=== PATIENT | female | born 1970 | race Caucasian/White ===

== ENCOUNTER 2020-05-10 21:53 | Emergency (ER) | payer BC, OTHER ==
[2020-05-10] MEDS ORDERED: Sulfamethoxazole/Trimethoprim 800-160 MG Tab PO STA (22:22)
[2020-05-10] MEDS ORDERED: Ibuprofen 600 MG Tab PO ONE (22:22)
[2020-05-10] MEDS ORDERED: Acetaminophen/oxyCODONE 325-5 MG Tab PO ONE (22:22)
--- NOTE | 2020-05-10 22:41 | EDM.PDOC ---
ED HPI GENERAL MEDICAL PROBLEM - General Chief Complaint: Skin Complaint Stated Complaint: BOIL UNDER RIGHT ARM Time Seen by Provider: 05/10/20 22:12 - History of Present Illness INITIAL COMMENTS - FREE TEXT/NARRATIVE: HISTORY AND PHYSICAL: History of present illness: This is a 49-year-old female with a history significant for insulin resistance who presents ER today secondary to purulent drainage from right axilla. Patient reports that she has had history of multiple boils to her right axilla that usually drain on their own. Patient reports that she is had pain and discomfort in that area for several days and today started having malodorous drainage noted. Patient has any fevers, shakes, chills, nausea, vomiting, diarrhea, dysuria, frequency, urgency, chest pain, shortness of breath. Review of systems: As per history of present illness and below otherwise all systems reviewed and negative. Past medical history: As per history of present illness and as reviewed below otherwise noncontributory. Surgical history: As per history of present illness and as reviewed below otherwise noncontributory. Social history: No reported history of drug or alcohol abuse. Family history: As per history of present illness and as reviewed below otherwise noncontributory. Physical exam: Constitutional: Patient is oriented to person, place, and time. Appears well- developed and well-nourished. No distress. HEENT: Moist mucous membranes Head: Normocephalic and atraumatic Eyes: Right eye exhibits no discharge. Left eye exhibits no discharge. No scleral icterus Neck: Normal range of motion. No tracheal deviation present. Cardiovascular: Normal rate and regular rhythm. Pulmonary: Effort normal, no respiratory distress. Abdominal: No distention Musculoskeletal: Normal range of motion Neurologic: Alert and oriented to person, place and time. Skin: [place], warm and dry. Psychiatric: Normal mood and affect. Behavior is normal. Judgment and thought content normal. Nursing note and vital signs have been reviewed Patient's ER physical exam is significant for multiple boils to her right axilla with fluctuance and spontaneous malodorous purulent drainage. Assessment and plan: This is a 49-year-old female who appears to have a right axillary abscess that has started to drain on its own. No lymphangitic streaking. Patient is afebrile. Patient is nontoxic-appearing. Utilizing direct pressure, significant amount of malodorous purulent drainage was expressed. Abscess was drained until no further purulent material was expressed. A small amount of blood was obtained. Patient appears to have a history significant for hidradenitis suprativa the with multiple abscesses. Patient has been given Bactrim, Motrin, Percocet here in ED to assist with her pain and infection. Patient be given a prescription for Bactrim, Motrin and Percocet to assist her at home. Patient was instructed to utilize warm soaks to the area and to follow-up with her doctor in 2 to 3 days for wound check. Reassessment at the time of disposition demonstrates that the patient is in no acute distress. The patient has remained stable throughout the entire ED visit and is without objective evidence for acute process requiring urgent intervention or hospitalization. The patient is stable for discharge, counseling is provided as documented above, discussed symptomatic treatment and specific conditions for return. I have spoken with the patient and discussed todays findings, in addition to providing specific details for the plan of care. Questions are answered and there is agreement with the plan. [] Definitive disposition and diagnosis as appropriate pending reevaluation and review of above. right under arm Pain Score (Numeric/FACES): 5 - Related Data Allergies Allergy/AdvReac Type Severity Reaction Status Date / Time meperidine HCl [From Demerol] Allergy Cannot Verified 05/08/14 15:37 Remember Home Meds: Home Meds Acetaminophen/oxyCODONE [Percocet 325-5 MG] 1 each PO Q6HR PRN #10 tab 05/10/20 [Rx] Ibuprofen 600 mg PO Q6HR PRN #30 tablet 05/10/20 [Rx] Sulfamethoxazole/Trimethoprim [Bactrim Ds Tablet] 2 each PO BID #40 tablet 05/10/20 [Rx] Past Medical History HEENT History: Reports: None Cardiovascular History: Reports: None Respiratory History: Reports: None Gastrointestinal History: Reports: None Genitourinary History: Reports: None 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: Musculoskeletal History: Reports: None Neurological History: Reports: None Psychiatric History: Reports: Anxiety, Depression Endocrine/Metabolic History: Reports: Other (See Below) Other Endocrine/Metabolic History: Insulin Resistant Insulin Pump Model and Heart Specialist: None Hematologic History: Reports: None Immunologic History: Reports: None Oncologic (Cancer) History: Reports: None - Infectious Disease History Infectious Disease History: Reports: None - Past Surgical History Head Surgeries/Procedures: Reports: None HEENT Surgical History: Reports: Tonsillectomy GI Surgical History: Reports: Cholecystectomy Dermatological Surgical History: Reports: Skin Graft Social & Family History - Family History Family Medical History: Noncontributory - Tobacco Use Smoking Status *Q: Never Smoker - Caffeine Use Caffeine Use: Reports: Soda - Recreational Drug Use Recreational Drug Use: No ED ROS GENERAL - Review of Systems Review Of Systems: See Below ED EXAM, SKIN/RASH Exam: See Below Course - Vital Signs Last Recorded V/S: Last Vital Signs Temp 99.4 F 05/10/20 22:20 Pulse 100 05/10/20 22:20 Resp 18 05/10/20 22:20 BP 148/84 H 05/10/20 22:20 Pulse Ox 97 05/10/20 22:20 - Orders/Labs/Meds Meds: Medications Discontinued Medications Generic Name Dose Route Start Last Admin Trade Name Sharif PRN Reason Stop Dose Admin Ibuprofen 600 mg 05/10/20 22:22 05/10/20 22:30 Motrin PO 05/10/20 22:23 600 mg ONETIME ONE Administration Oxycodone/Acetaminophen 1 tab 05/10/20 22:22 05/10/20 22:31 Percocet 325-5 Mg PO 05/10/20 22:23 1 tab ONETIME ONE Administration Trimethoprim/Sulfamethoxazole 2 tab 05/10/20 22:22 05/10/20 22:30 Septra Ds PO 05/10/20 22:23 2 tab ONETIME STA Administration Departure - Departure Time of Disposition: 22:40 Disposition: Home, Self-Care 01 Condition: Good Clinical Impression: Abscess - Discharge Information Instructions: Skin Abscess Referrals: Steven Oneil MD [Primary Care Provider] - Additional Instructions: You have been given a prescription for Bactrim 2 pills twice a day for 10 days as an antibiotic to treat the abscess under your right armpit. You will also be given a prescription for Percocet as well as ibuprofen to assist you with pain management for the next 2 days. Please make an appointment to see your family doctor in 2 to 3 days for reevaluation and make sure that the infection is improving. Please apply a heating pad or warm soaks to the right axillary area to increase blood flow which will increase your body's mechanism to fight the infection. The following information is given to patients seen in the emergency department who are being discharged to home. This information is to outline your options for follow-up care. We provide all patients seen in our emergency department with a follow-up referral. The need for follow-up, as well as the timing and circumstances, are variable depending upon the specifics of your emergency department visit. If you don't have a primary care physician on staff, we will provide you with a referral. We always advise you to contact your personal physician following an emergency department visit to inform them of the circumstance of the visit and for follow-up with them and/or the need for any referrals to a consulting specialist. The emergency department will also refer you to a specialist when appropriate. This referral assures that you have the opportunity for follow-up care with a specialist. All of these measure are taken in an effort to provide you with optimal care, which includes your follow-up. Under all circumstances we always encourage you to contact your private physician who remains a resource for coordinating your care. When calling for follow-up care, please make the office aware that this follow-up is from your recent emergency room visit. If for any reason you are refused follow-up, please contact the Emergency Department at and asked to speak to the emergency department charge nurse. Sepsis Event Note (ED) - Evaluation Sepsis Screening Result: No Definite Risk - Focused Exam Vital Signs: Vital Signs Temp Pulse Resp BP Pulse Ox 05/10/20 22:20 99.4 F 100 18 148/84 H 97
== END 2020-05-10 23:00 | disposition home or self-care (01) ==
LOC: MW.ED 21:53
DX: L02.411 Cutaneous abscess of right axilla (principal); Z88.5 Allergy status to narcotic agent
CPT/HCPCS: 99283; A9270

== ENCOUNTER 2020-07-06 14:41 | Emergency (ER) | payer OTHER ==
--- NOTE | 2020-07-06 14:52 | EDM.PDOC ---
ED HPI GENERAL MEDICAL PROBLEM - General Chief Complaint: Lower Extremity Injury/Pain Stated Complaint: FALL Time Seen by Provider: 07/06/20 14:42 Source of Information: Reports: Patient History Limitations: Reports: No Limitations - History of Present Illness INITIAL COMMENTS - FREE TEXT/NARRATIVE: 49-year-old female no relevant past medical history presents after a fall. She notes that she stepped on her left ankle wrong causing an inversion injury and fell flat on her belly. She notes pain in the left ankle worse with bearing weight and ambulation. She denies pain at rest. Denies hitting her head or LOC. She has ambulated after the fall. 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: Musculoskeletal History: Reports: None Neurological History: Reports: None Psychiatric History: Reports: Anxiety, Depression Endocrine/Metabolic History: Reports: Other (See Below) Other Endocrine/Metabolic History: Insulin Resistant Insulin Pump Model and Hot Die Press Operator: None Hematologic History: Reports: None Immunologic History: Reports: None Oncologic (Cancer) History: Reports: None - Infectious Disease History Infectious Disease History: Reports: None - Past Surgical History Head Surgeries/Procedures: Reports: None HEENT Surgical History: Reports: Tonsillectomy GI Surgical History: Reports: Cholecystectomy Dermatological Surgical History: Reports: Skin Graft Social & Family History - Family History Family Medical History: Noncontributory - Caffeine Use Caffeine Use: Reports: Soda Review of Systems - Review of Systems Review Of Systems: Comprehensive ROS is negative, except as noted in HPI. ED EXAM, GENERAL - Physical Exam Exam: See Below Exam Limited By: No Limitations General Appearance: Alert, WD/WN, No Apparent Distress Throat/Mouth: Normal Voice, No Airway Compromise Head: Atraumatic, Normocephalic Respiratory/Chest: No Respiratory Distress, No Accessory Muscle Use Extremities: Other (mild swelling of L ankle, no TTP of L medial or lateral malleolus, no foot/metatarsal TTP, no tibial TTP) Neurological: Alert Psychiatric: Normal Affect, Normal Mood Skin Exam: Warm, Dry, Intact, Normal Color Course - Vital Signs Last Recorded V/S: Last Vital Signs Temp 98 F 07/06/20 14:50 Pulse 64 07/06/20 15:31 Resp 18 07/06/20 15:31 BP 133/65 07/06/20 15:31 Pulse Ox 99 07/06/20 15:31 - Re-Assessments/Exams Free Text/Narrative Re-Assessment/Exam: 07/06/20 14:51 Will get XR imaging of L ankle to r/o less likely fracture/dislocation, patient declines analgesia. 07/06/20 15:42 No evidence of fracture or dislocation on x-ray imaging. We will Magdy wrap the ankle, and recommend PMD follow-up return precautions discussed. Departure - Departure Time of Disposition: 15:42 Disposition: Home, Self-Care 01 Condition: Good Clinical Impression: Ankle sprain Qualifiers: Encounter type: initial encounter Involved ligament of ankle: unspecified ligament Laterality: left Qualified Code(s): S93.402A - Sprain of unspecified ligament of left ankle, initial encounter - Discharge Information Instructions: Ankle Sprain, [id number] Referrals: Tiffanie Oneil MD [Primary Care Provider] - Forms: ED Department Discharge Additional Instructions: The following information is given to patients seen in the emergency department who are being discharged to home. This information is to outline your options for follow-up care. We provide all patients seen in our emergency department with a follow-up referral. The need for follow-up, as well as the timing and circumstances, are variable depending upon the specifics of your emergency department visit. If you don't have a primary care physician on staff, we will provide you with a referral. We always advise you to contact your personal physician following an emergency department visit to inform them of the circumstance of the visit and for follow-up with them and/or the need for any referrals to a consulting specialist. The emergency department will also refer you to a specialist when appropriate. This referral assures that you have the opportunity for follow-up care with a specialist. All of these measure are taken in an effort to provide you with optimal care, which includes your follow-up. Under all circumstances we always encourage you to contact your private urmila zambranoian who remains a resource for coordinating your care. When calling for follow-up care, please make the office aware that this follow-up is from your recent emergency room visit. If for any reason you are refused follow-up, please contact the [facility] Emergency Department at and asked to speak to the emergency department charge nurse. Please follow up with your primary care physician. If you do not have a primary care physician, see below: [facility] [address] [place] [id number] [facility] [address] [place] [id number] Sepsis Event Note (ED) - Focused Exam Vital Signs: Vital Signs Temp Pulse Resp BP Pulse Ox 07/06/20 15:31 64 18 133/65 99 07/06/20 14:50 98 F 79 18 126/69 97
--- NOTE | 2020-07-06 15:40 | CR ---
Indication: Left ankle pain Technique: Left ankle 3 views Comparison: None Findings: The ankle mortise is symmetrical. The talar dome is smooth and intact. Well corticated opacity adjacent to the medial malleolus is appreciated which may represent sequela of prior injury. There is mild para malleolar soft tissue swelling. Impression: Mild para malleolar soft tissue swelling with out evidence of definite acute osseous abnormality. Corticated opacity adjacent to the medial malleolus likely represents sequela of old injury. Dictated by Mauro Bradley MD @ Jul 06 2020 3:37PM Signed by Dr. Mauro Bradley @ Jul 06 2020 3:38PM
== END 2020-07-06 16:00 | disposition home or self-care (01) ==
LOC: MW.ED 14:41
DX: S93.402A Sprain of unspecified ligament of left ankle, initial encounter (principal); Z88.5 Allergy status to narcotic agent; X50.9XXA Other and unspecified overexertion or strenuous movements or postures, initial encounter
CPT/HCPCS: 73610-26-LT; 73610-LT; 99282; 99283

== ENCOUNTER 2021-03-05 11:09 | Emergency (ER) | payer OTHER ==
--- NOTE | 2021-03-05 12:56 | EDM.PDOC ---
ED HPI GENERAL MEDICAL PROBLEM - General Chief Complaint: ENT Problem Stated Complaint: NOSE LESION Time Seen by Provider: 03/05/21 12:34 Source of Information: Reports: Patient History Limitations: Reports: No Limitations - History of Present Illness INITIAL COMMENTS - FREE TEXT/NARRATIVE: HISTORY AND PHYSICAL: History of present illness: The patient is a 50-year-old female who presents to the emergency room with complaints of a wound on her nose which started Sunday. 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 She states that each day the area has gotten better and now has a black center. The patient has not used any kind of oils or treatment on her nose. The patient states that she does have some glands that she noticed swollen in her posterior neck and right axillary area. The patient is otherwise healthy. Patient denies any fever, chills, headache, change in vision, syncope or near syncope. Denies any chest pain, back pain, shortness of breath or cough. Denies any abdominal pain, nausea, vomiting, diarrhea, constipation or dysuria. Has not noted any blood in urine or stool. Patient has been eating and drinking appropriately. Review of systems: As per history of present illness and below otherwise all systems reviewed and negative. Past medical history: As per history of present illness and as reviewed below otherwise noncontributory. Surgical history: As per history of present illness and as reviewed below otherwise noncontribut ory. Social history: See social history for further information Family history: As per history of present illness and as reviewed below otherwise noncontributory. Physical exam: General: Well developed and well nourished. Alert and orientated x 3. Nontoxic in appearance and in no acute distress. Vital signs are stable and have been reviewed by me. Nursing notes were reviewed. HEENT: Atraumatic, normocephalic, pupils equal and reactive bilaterally, negative for conjunctival pallor or scleral icterus, mucous membranes moist, TMs normal bilaterally, throat clear, neck supple, posterior right tenderness with swollen node, trachea midline. No drooling or trismus noted. No meningeal signs. No hot potato voice noted. Lungs: Clear to auscultation bilaterally. No wheezes, rales, or rhonchi. Chest nontender. Normal work of breathing, no accessory muscles used. Heart: S1S2, regular rate and rhythm without overt murmur, gallops, or rubs. No JVD. No peripheral edema Abdomen: Soft, nondistended, nontender. Normoactive bowel sounds. Negative for masses or costovertebral tenderness. Skin: Brown crusty area with a black base. Nose is firm with erythema surrounding the wound. , warm, dry. No lesions or rashes noted. Hematologic: No petechiae or purpra. Mucosa appropriate color and normal nail bed color and refill. Extremities: Right axilla tender with swollen node. Atraumatic, moves all extremities per self without difficulty or deficits, negative for cords or calf pain. Neurovascular unremarkable. Neuro: Awake, alert, oriented. Cranial nerves II through XII unremarkable. Cerebellum unremarkable. Motor and sensory unremarkable throughout. Exam nonfocal. Psychiatric: Mood and affect are appropriate. Normal thought process. Answering questions appropriately. Notes: *This patient was seen and evaluated during the 2019 SARS-CoV-2 novel coronavirus pandemic period. Community viral transmission is ongoing at time of this encounter and the emergency department is operating under pandemic response procedures. As stated above the patient is a 50-year-old female who presents to the emergency room with a wound on the tip of her nose. She states this started on Sunday when she was teaching a class and felt a burning sensation on her nose. She then noticed some clear liquid draining from her nose. She did not notice any increased redness at that point. She states that the area became progressively redder kept draining more clear fluid. Yesterday it started to form a darker center and today she presents with a red firm nose with a round crusty area around a black center of the wound. She denies any temperature or generalized malaise. This appears to be impetigo and I will treat with Dicloxacillin 250mg QID x 7 days and mupirocin to area three times per day for 5 days. The patient is agreeable with this discharge plan. I have talked with the patient about today's findings, in addition to providing specific details for plan of care. Reassessment at the time of disposition demonstrates that the patient is in no acute distress. The patient is stable for discharge, counseling was provided and we discussed in great detail signs and symptoms that would prompt them to return to the Emergency Department. Medication, follow up and supportive care measures were reviewed and discussed. Voices understanding and is agreeable to plan of care. Denies any further questions or concerns at this time. Prescription: Dicloxacillin 250mg po QID x 7 days and mupirocin to area three times per day for 5 days. Impression: Impetigo Plan: 1. You were evaluated today on an emergent basis. Your complaint of wound on your nose was evaluated with an examination and found to be infected. I will start you on dicloxacillin 250 mg 4 times a day for 7 days days. Apply mupirocin to area 2-3 times a day for 5 days. Keep the area clean. Do not pick at the area. 2. You can alternate Tylenol and ibuprofen as needed for pain and fever management. 3. We encourage you to follow up with your primary care provider and/or recommended specialist in the next few days for re-evaluation and further care/management. 4. If your symptoms should worsen, new symptoms develop or any of the signs and symptoms we discussed should arise please return to the emergency room or call 911 (if needed). Definitive disposition and diagnosis as appropriate pending reevaluation and review of above. nose/neck Pain Score (Numeric/FACES): 4 - Related Data Allergies Allergy/AdvReac Type Severity Reaction Status Date / Time meperidine HCl [From Demerol] Allergy Cannot Verified 03/05/21 12:24 Remember Home Meds: Home Meds Ibuprofen 600 mg PO Q6HR PRN #30 tablet 05/10/20 [Rx] Acetaminophen [Tylenol] 325 mg PO BID 07/06/20 [History] Dicloxacillin 250 mg PO QID 7 Days #28 cap 03/05/21 [Rx] Mupirocin [Centany] 30 gm TP TID 5 Days #1 oint...g. 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: Musculoskeletal History: Reports: None Neurological History: Reports: None Psychiatric History: Reports: Anxiety, Depression Endocrine/Metabolic History: Reports: Other (See Below) Other Endocrine/Metabolic History: Insulin Resistant Insulin Pump Model and Top Waddy: None Hematologic History: Reports: None Immunologic History: Reports: None Oncologic (Cancer) History: Reports: None - Infectious Disease History Infectious Disease History: Reports: Chicken Pox, Measles, Mumps - Past Surgical History Head Surgeries/Procedures: Reports: None HEENT Surgical History: Reports: Adenoidectomy, Tonsillectomy GI Surgical History: Reports: Cholecystectomy Dermatological Surgical History: Reports: Skin Graft Social & Family History - Family History Family Medical History: No Pertinent Family History - Tobacco Use Tobacco Use Status *Q: Never Tobacco User - Caffeine Use Caffeine Use: Reports: Soda - Recreational Drug Use Recreational Drug Use: No ED ROS ENT - Review of Systems Review Of Systems: Comprehensive ROS is negative, except as noted in HPI. ED EXAM, ENT - Physical Exam Exam: See Below (See dictation) Course - Vital Signs Last Recorded V/S: Last Vital Signs Temp 98 F 03/05/21 12:24 Pulse 93 03/05/21 12:24 Resp BP 151/93 H 03/05/21 12:24 Pulse Ox 98 03/05/21 12:24 Departure - Departure Time of Disposition: 12:59 Disposition: Home, Self-Care 01 Condition: Good Clinical Impression: Impetigo - Discharge Information *PRESCRIPTION DRUG MONITORING PROGRAM REVIEWED*: Not Applicable *COPY OF PRESCRIPTION DRUG MONITORING REPORT IN PATIENT MANUEL: Not Applicable Prescriptions: Mupirocin [Centany] 30 gm TP TID 5 Days #1 oint...g. Dicloxacillin 250 mg PO QID 7 Days #28 cap Instructions: Impetigo, Adult Referrals: Steven Oneil MD [Primary Care Provider] - Forms: ED Department Discharge Additional Instructions: The following information is given to patients seen in the emergency department who are being discharged to home. This information is to outline your options for follow-up care. We provide all patients seen in our emergency department with a follow-up referral. The need for follow-up, as well as the timing and circumstances, are variable depending upon the specifics of your emergency department visit. If you don't have a primary care physician on staff, we will provide you with a referral. We always advise you to contact your personal physician following an emergency department visit to inform them of the circumstance of the visit and for follow-up with them and/or the need for any referrals to a consulting specialist. The emergency department will also refer you to a specialist when appropriate. This referral assures that you have the opportunity for follow-up care with a specialist. All of these measure are taken in an effort to provide you with optimal care, which includes your follow-up. Under all circumstances we always encourage you to contact your private physician who remains a resource for coordinating your care. When calling for follow-up care, please make the office aware that this follow-up is from your recent emergency room visit. If for any reason you are refused follow-up, please contact the [facility] Emergency Department at and asked to speak to the emergency department charge nurse. [facility] [address] [place] [id number] [address] Plan: 1. You were evaluated today on an emergent basis. Your complaint of wound on your nose was evaluated with an examination and found to be infected. I will start you on dicloxacillin 250 mg 4 times a day for 7 days days. Apply mupirocin to area 2-3 times a day for 5 days. Keep the area clean. Do not pick at the area. 2. You can alternate Tylenol and ibuprofen as needed for pain and fever management. 3. We encourage you to follow up with your primary care provider and/or recommended specialist in the next few days for re-evaluation and further care/management. 4. If your symptoms should worsen, new symptoms develop or any of the signs and symptoms we discussed should arise please return to the emergency room or call 911 (if needed). Sepsis Event Note (ED) - Evaluation Sepsis Screening Result: No Definite Risk - Focused Exam Vital Signs: Vital Signs Temp Pulse BP Pulse Ox 03/05/21 12:24 98 F 93 151/93 H 98
== END 2021-03-05 13:25 | disposition home or self-care (01) ==
LOC: MW.ED 11:09
DX: L01.00 Impetigo, unspecified (principal); Z88.5 Allergy status to narcotic agent
CPT/HCPCS: 99283

== ENCOUNTER 2021-07-08 17:15 | Emergency (ER) | payer OTHER ==
--- NOTE | 2021-07-08 17:42 | PCM.EKG ---
#1 Interpretation EKG Interpretation Comments: EKG done 07/08/2021 at 5:30 PM shows sinus rhythm heart rate 79 [place] [address] XII normal QRS normal ST and T impression essentially normal EKG
--- NOTE | 2021-07-08 18:02 | EDM.PDOC ---
ED HPI GENERAL MEDICAL PROBLEM - General Chief Complaint: Chest Pain Stated Complaint: MUSCLE TIGHTNESS,PASSED OUT Time Seen by Provider: 07/08/21 17:52 - History of Present Illness INITIAL COMMENTS - FREE TEXT/NARRATIVE: History of present illness: [] Review of systems: As per history of present illness and below otherwise all systems reviewed and negative. Past medical history: As per history of present illness and as reviewed below otherwise noncontributory. This patient who for years has had brief blackouts has never told her doctor. Recently she has had more frequency. Today she had pressure in her left chest left anterior chest and shoulder. It was associated with diaphoresis. Its associated with shortness of breath. She suddenly saw things start to go black and then she sat in a chair and blacked out. People said she shook but not rhythmically no seizure. There is no incontinence. She was out only few seconds. The patient came to and still had chest and shoulder discomfort. The chest and shoulder discomfort are better but she still short of breath. She has been diaphoretic off and on. Exertion does not make this worse. The patient smoked for 20 years but stopped 6 years ago. The patient is insulin resistant and tested frequently for diabetes. She is treated for blood pressure and cholesterol. Patient has family members in their 50s that have strokes and heart attacks. Surgical history: As per history of present illness and as reviewed below otherwise noncontributory. Social history: No reported history of drug or alcohol abuse. Family history: As per history of present illness and as reviewed below otherwise noncontributory. Physical exam: Constitutional -obese-BMI 56.5-well developed, well-nourished and in no acute distress HEENT - normocephalic, no evidence of trauma - external nose and mouth normal - no mass in neck and no JVD - mucosae moist EYES - full EOM, PERRL, no icterus - no evidence of inflammation, injection, or drainage Respiratory - no respiratory distress, equal bilateral expansion, lungs clear to auscultation and no abnormal lung sounds Cardiovascular - Regular Rhythm with S1 and S2 appreciated and no murmur, gallop or rub. GI - abdomen soft without distension or organomegaly - normal bowel sounds - no guard or rebound Musculoskeletal no gross deformity of long bones or joints - no tenderness, swelling or edema Neurologic - Alert and oriented times four - CN II-XII grossly intact - motor sensory and coordination symmetrically normal Psychiatric - appropriate mood and affect with normal thought content Hematologic - No petechiae or purpura - mucosa appropriate color and sclera not pale - normal nail bed color and refill Integument - no rash or evidence of trauma - normal turgor Diagnostics: [] Therapeutics: [] Impression: [] Plan: [] Definitive disposition and diagnosis as appropriate pending reevaluation and review of above. - Related Data Allergies Allergy/AdvReac Type Severity Reaction Status Date / Time meperidine HCl [From Demerol] Allergy Syncope Verified 07/08/21 17:37 Home Meds: Home Meds Ibuprofen 600 mg PO Q6HR PRN #30 tablet 05/10/20 [Rx] Acetaminophen [Tylenol] 325 mg PO BID 07/06/20 [History] Dicloxacillin 250 mg PO QID 7 Days #28 cap 03/05/21 [Rx] Mupirocin [Centany] 30 gm TP TID 5 Days #1 oint...g. 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: Musculoskeletal History: Reports: None Neurological History: Reports: None Psychiatric History: Reports: Anxiety, Depression Endocrine/Metabolic History: Reports: Other (See Below) Other Endocrine/Metabolic History: Insulin Resistant Insulin Pump Model and Rotary Drill Operator: None Hematologic History: Reports: None Immunologic History: Reports: None Oncologic (Cancer) History: Reports: None - Infectious Disease History Infectious Disease History: Reports: Chicken Pox, Measles, Mumps - Past Surgical History Head Surgeries/Procedures: Reports: None HEENT Surgical History: Reports: Adenoidectomy, Tonsillectomy GI Surgical History: Reports: Cholecystectomy Dermatological Surgical History: Reports: Skin Graft Social & Family History - Family History Family Medical History: No Pertinent Family History - Caffeine Use Caffeine Use: Reports: Soda ED ROS GENERAL - Review of Systems Review Of Systems: Comprehensive ROS is negative, except as noted in HPI. ED EXAM, GENERAL - Physical Exam Exam: See Below Free Text/Narrative:: My physical exam is in the HPI Course - Vital Signs Last Recorded V/S: Last Vital Signs Temp Pulse 84 07/08/21 17:30 Resp 17 07/08/21 17:30 BP 145/82 H 07/08/21 17:30 Pulse Ox 97 07/08/21 17:30 - Orders/Labs/Meds Labs: Laboratory Tests 07/08/21 07/08/21 Range/Units 17:34 17:34 WBC 7.82 (4.0-11.0) K/uL RBC 5.14 (4.30-5.90) M/uL Hgb 14.4 (12.0-16.0) g/dL Hct 41.8 (36.0-46.0) % MCV 81.3 (80.0-98.0) fL MCH 28.0 (27.0-32.0) pg MCHC 34.4 (31.0-37.0) g/dL RDW Std Deviation 43.6 (28.0-62.0) fl RDW Coeff of Madan 15 (11.0-15.0) % Plt Count 166 (150-400) K/uL MPV 9.20 (7.40-12.00) fL Neut % (Auto) 60.6 (48.0-80.0) % Lymph % (Auto) 31.3 (16.0-40.0) % [place] % (Auto) 5.2 (0.0-15.0) % Eos % (Auto) 2.6 (0.0-7.0) % Baso % (Auto) 0.3 (0.0-1.5) % Neut # (Auto) 4.7 (1.4-5.7) K/uL Lymph # (Auto) 2.5 H (0.6-2.4) K/uL [place] # (Auto) 0.4 (0.0-0.8) K/uL Eos # (Auto) 0.2 (0.0-0.7) K/uL Baso # (Auto) 0.0 (0.0-0.1) K/uL Nucleated RBC % 0.0 /100WBC Nucleated RBCs # 0 K/uL Sodium 142 (136-145) mmol/L Potassium 3.8 (3.5-5.1) mmol/L Chloride 103 (98-107) mmol/L Carbon Dioxide 24.6 (21.0-32.0) mmol/L BUN 14 (7.0-18.0) mg/dL Creatinine 0.9 (0.6-1.0) mg/dL Est Cr Clr Drug Dosing 78.15 mL/min Estimated GFR (MDRD) > 60.0 ml/min Glucose 139 H (74-106) mg/dL Calcium 9.0 (8.5-10.1) mg/dL Total Bilirubin 0.6 (0.2-1.0) mg/dL AST 35 (15-37) IU/L ALT 59 (14-63) IU/L Alkaline Phosphatase 60 (46-116) U/L Troponin I < 0.050 (0.000-0.056) ng/mL Total Protein 7.8 (6.4-8.2) g/dL Albumin 3.7 (3.4-5.0) g/dL Globulin 4.1 H (2.6-4.0) g/dL Albumin/Globulin Ratio 0.9 (0.9-1.6) Departure - Departure Time of Disposition: 18:47 Disposition: Home, Self-Care 01 Clinical Impression: Chest pain, Syncope, Dyspnea - Discharge Information Instructions: Shortness of Breath, Adult, [id number], Nonspecific Chest Pain, Adult, [id number], Syncope Forms: ED Department Discharge Additional Instructions: have Zio patch placed tomorrow or Sunday. Go back to normal activities but if you get worse or prolonged pain an episode last longer than a few seconds you need to return. Make appointment with cardiology clinic for reevaluation [facility] - cardiology [address] [place] [address] Follow-up with your doctor or primary care [facility] - Primary Care [address] [place] [id number] [id number] The following information is given to patients seen in the emergency department who are being discharged to home. This information is to outline your options for follow-up care. We provide all patients seen in our emergency department with a follow-up referral. The need for follow-up, as well as the timing and circumstances, are variable depending upon the specifics of your emergency department visit. If you don't have a primary care physician on staff, we will provide you with a referral. We always advise you to contact your personal physician following an emergency department visit to inform them of the circumstance of the visit and for follow-up with them and/or the need for any referrals to a consulting specialist. The emergency department will also refer you to a specialist when appropriate. This referral assures that you have the opportunity for follow-up care with a specialist. All of these measure are taken in an effort to provide you with optimal care, which includes your follow-up. Under all circumstances we always encourage you to contact your private physician who remains a resource for coordinating your care. When calling for follow-up care, please make the office aware that this follow-up is from your recent emergency room visit. If for any reason you are refused follow-up, please contact the [facility] Emergency Department at and asked to speak to the emergency department charge nurse. Sepsis Event Note (ED) - Evaluation Sepsis Screening Result: No Definite Risk - Focused Exam Vital Signs: Vital Signs Pulse Resp BP Pulse Ox 07/08/21 17:30 84 17 145/82 H 97
[2021-07-08 18:18] LABS: BLOOD UREA NITROGEN,BUN 14 mg/dL (7.0-18.0); CARBON DIOXIDE,CO2 24.6 mmol/L (21.0-32.0); CHLORIDE,CL 103 mmol/L (98-107); GLUCOSE RANDOM 139 mg/dL (74-106); POTASSIUM,K 3.8 mmol/L (3.5-5.1); SODIUM,NA 142 mmol/L (136-145)
--- NOTE | 2021-07-08 18:43 | CR ---
INDICATION: Chest pain TECHNIQUE: Chest 1 view. COMPARISON: 12/06/2020 FINDINGS: Cardiovascular and mediastinum: Heart size and vasculature are normal in caliber and appearance. Mediastinum is within normal limits. Lungs and pleural space: Lungs are clear. No pleural effusion. No pneumothorax. Bones and soft tissues: No acute findings. IMPRESSION: No acute abnormality identified. Dictated by Sixto Mayes MD @ 07/08/2021 6:42:13 PM Dictated by: Sixto Mayes MD @ 07/08/2021 18:42:19 (Electronically Signed)
== END 2021-07-08 18:58 | disposition home or self-care (01) ==
LOC: MW.ED 17:15
DX: R07.89 Other chest pain (principal); R55 Syncope and collapse; R06.00 Dyspnea, unspecified; Z88.5 Allergy status to narcotic agent; Z87.891 Personal history of nicotine dependence
CPT/HCPCS: 36415; 71045; 71045-26; 80053; 84484; 85025; 93005; 99285-25

== ENCOUNTER 2022-03-23 12:15 | Emergency (ER) | payer OTHER ==
[2022-03-23 13:54] LABS: CARBON DIOXIDE,CO2 25.6 mmol/L (21.0-32.0); POTASSIUM,K 3.7 mmol/L (3.5-5.1)
[2022-03-23] MEDS ORDERED: Iopamidol 755 MG/ML 500 ML Multipack Bottle IVPUSH STA (15:37)
== END 2022-03-23 19:15 | disposition home or self-care (01) ==
LOC: MW.ED 12:15
DX: K56.699 Other intestinal obstruction unspecified as to partial versus complete obstruction (principal); Z88.8 Allergy status to other drugs, medicaments and biological substances; Z86.16 Personal history of COVID-19; Z90.49 Acquired absence of other specified parts of digestive tract
CPT/HCPCS: 36415; 74177; 76856; 80053; 81003; 81025; 83690; 85025; 99285; Q9967; 99284

== ENCOUNTER 2022-07-03 09:01 | Day surgery (SDC) | payer OTHER ==
[~2022-07-03 09:01] MED LIST: Lactated Ringers 1,000 ML IV SCH; Rocuronium Bromide 50 MG/5 ML Syringe ONE
[2022-07-03] MEDS ORDERED: Lidocaine 2% 5 ML SDV ONE (09:11)
[2022-07-03] MEDS ORDERED: Dexamethasone 4 MG/ML 5 ML MDV ONE (09:11)
[2022-07-03] MEDS ORDERED: Propofol 200 MG/20 ML SDV ONE (09:11)
[2022-07-03] MEDS ORDERED: Sugammadex Sodium 200 MG/2 ML VIAL ONE (09:11)
[2022-07-03] MEDS ORDERED: Ondansetron 4 MG/2 ML SDV ONE (09:11)
[2022-07-03] MEDS ORDERED: Midazolam 1 MG/ML 2 ML SDV ONE (09:11)
[2022-07-03] MEDS ORDERED: fentaNYL 250 MCG/5 ML SDV ONE (09:12)
[2022-07-03] MEDS ORDERED: Albuterol 0.083% 2.5 MG/3 ML Neb Soln NEB PRN (09:33)
[2022-07-03] MEDS ORDERED: Ondansetron 4 MG/2 ML SDV IVPUSH PRN (09:33)
[2022-07-03] MEDS ORDERED: fentaNYL 50 MCG/ML SDV IVPUSH PRN (09:33)
[2022-07-03] MEDS ORDERED: Metoclopramide 10 MG/2 ML SDV IVPUSH PRN (09:33)
[2022-07-03] MEDS ORDERED: HYDROmorphone 1 MG/ML Syringe IVPUSH PRN (09:33)
[2022-07-03] MEDS ORDERED: Naloxone 0.4 MG/ML SDV IVPUSH PRN (09:33)
[2022-07-03] MEDS ORDERED: Morphine 2 MG/ML SYRINGE IVPUSH PRN (09:33)
[2022-07-03] MEDS ORDERED: Bupivacaine 0.25% 30 ML SDV ONE (11:45)
[2022-07-03] MEDS ORDERED: Ketorolac 30 MG/ML SDV ONE (13:04)
== END 2022-07-03 15:34 | disposition home or self-care (01) ==
LOC: MW.SDS 09:01
PROVIDERS: ATTEND Obstetrics & Gynecology
DX: N84.0 Polyp of corpus uteri (principal); N83.8 Other noninflammatory disorders of ovary, fallopian tube and broad ligament; E66.9 Obesity, unspecified; F32.A Depression, unspecified; K21.9 Gastro-esophageal reflux disease without esophagitis; E28.2 Polycystic ovarian syndrome; J45.909 Unspecified asthma, uncomplicated; Z68.41 Body mass index [BMI] 40.0-44.9, adult; Z79.899 Other long term (current) drug therapy; Z98.890 Other specified postprocedural states; Z87.891 Personal history of nicotine dependence; Z91.011 Allergy to milk products; Z88.5 Allergy status to narcotic agent; Z90.49 Acquired absence of other specified parts of digestive tract; Z86.19 Personal history of other infectious and parasitic diseases
CPT/HCPCS: 36415; 58558; 58661; 84703; 85027; J0131; J1100; J1885; J2250; J2704; J3010; J3490; J7120; 00840; J2405

== ENCOUNTER 2022-08-29 06:31 | Day surgery (SDC) | payer OTHER ==
[~2022-08-29 06:31] MED LIST changes: -Rocuronium Bromide 50 MG/5 ML Syringe ONE; +Sodium Chloride 0.9% 10 ML Syringe FLUSH PRN; +Sodium Chloride 0.9% 2.5 ML Syringe FLUSH PRN; +Sodium Chloride 0.9% 20 ML SDV IV PRN
[2022-08-29] MEDS ORDERED: Lidocaine 2% 5 ML SDV ONE (07:23)
[2022-08-29] MEDS ORDERED: Propofol 200 MG/20 ML SDV ONE (07:23)
[2022-08-29] MEDS ORDERED: fentaNYL 100 MCG/2 ML SDV ONE (07:24)
== END 2022-08-29 09:30 | disposition home or self-care (01) ==
LOC: MW.SDS 06:31
PROVIDERS: ATTEND Surgery
DX: Z12.11 Encounter for screening for malignant neoplasm of colon (principal); D12.2 Benign neoplasm of ascending colon; D50.9 Iron deficiency anemia, unspecified; E66.9 Obesity, unspecified; F41.9 Anxiety disorder, unspecified; F32.A Depression, unspecified; J45.909 Unspecified asthma, uncomplicated; M19.90 Unspecified osteoarthritis, unspecified site; Z80.0 Family history of malignant neoplasm of digestive organs; Z79.899 Other long term (current) drug therapy; Z88.5 Allergy status to narcotic agent; Z90.49 Acquired absence of other specified parts of digestive tract; Z98.890 Other specified postprocedural states; Z68.41 Body mass index [BMI] 40.0-44.9, adult; Z87.891 Personal history of nicotine dependence; Z86.16 Personal history of COVID-19
CPT/HCPCS: 45380; J2704; J3010; J7120; 00812

== ENCOUNTER 2024-06-14 16:59 | Inpatient (IN) | payer OTHER ==
[2024-06-14] MEDS: Ketorolac 30 MG/ML SDV IVPUSH STA (18:04)
[2024-06-14] MEDS: Acetaminophen 500 MG Tab PO STA (18:04)
[2024-06-14] MEDS: Sodium Chloride 0.9% 500 ML IV STA ×2 (18:05→19:44)
[2024-06-14] MEDS: Albuterol/Ipratropium 3.0-0.5 MG/3 ML Neb Soln NEB STA (18:05)
[2024-06-14] MEDS: cefTRIAXone 2 GM in Sodium Chloride 0.9% 50 ML IV STA (18:05)
[2024-06-14] MEDS: Albuterol 0.083% 2.5 MG/3 ML Neb Soln NEB STA (18:05)
[2024-06-14] MEDS: methylPREDNISolone Sodium Succinate 125 MG/2 ML SDV IVPUSH STA (18:05)
[2024-06-14 18:14] LABS: CORONAVIRUS COVID-19 NAA NEGATIVE (NEGATIVE); INFLUENZA A NAA NEGATIVE (NEGATIVE); INFLUENZA B NAA NEGATIVE (NEGATIVE)
[2024-06-14 18:22] LABS: BASOPHILS ABSOLUTE AUTO 0.03 K/uL (0.00-0.20); BASOPHILS PERCENT AUTO 0.3 % (0.0-1.0); EOSINOPHILS ABSOLUTE AUTO 0.08 K/uL (0.00-0.45); EOSINOPHILS PERCENT AUTO 0.9 % (0.0-6.0); HEMATOCRIT 40.7 % (37.0-47.0); HEMOGLOBIN 14.1 g/dL (12.0-16.0); IMMATURE GRAN ABSOLUTE AUTO 0.03 K/uL (0.00-0.05); IMMATURE GRAN PERCENT AUTO 0.3 % (0.0-0.4); LYMPHOCYTES ABSOLUTE AUTO 1.27 K/uL (1.00-4.80); LYMPHOCYTES PERCENT AUTO 14.2 % (24.0-44.0); MEAN CORPUSCULAR HEMOGLOBIN 27.9 pg (28.0-32.0); MEAN CORPUSCULAR HGB CONC 34.6 g/dL (32.0-36.0); MEAN CORPUSCULAR VOLUME 80.4 fL (83.0-99.0); MEAN PLATELET VOLUME 9.1 fL (9.4-12.3); MONOCYTES ABSOLUTE AUTO 0.43 K/uL (0.00-0.80); MONOCYTES PERCENT AUTO 4.8 % (0.0-8.0); NEUTROPHILS ABSOLUTE AUTO 7.08 K/uL (1.80-7.70); NEUTROPHILS PERCENT AUTO 79.5 % (41.0-71.0); PLATELET COUNT,PLT 151 K/uL (150-400); RED BLOOD CELL COUNT 5.06 M/uL (4.10-5.30); WHITE BLOOD CELL COUNT,WBC 8.92 K/uL (3.9-11.3)
[2024-06-14 18:30] LABS: INR 1.05 (0.86-1.11)
[2024-06-14 18:37] LABS: A/G RATIO 0.9 (0.9-1.6); ALBUMIN 3.7 g/dL (3.4-5.0); BILIRUBIN TOTAL 1.1 mg/dL (0.2-1.0); CALCIUM 8.9 mg/dL (8.5-10.1); CARBON DIOXIDE,CO2 26.4 mmol/L (21.0-32.0); CREATININE 0.9 mg/dL (0.6-1.0); EST CRCL DRUG DOSING (CG) 72.92 mL/min; POTASSIUM,K 3.5 mmol/L (3.5-5.1); PROTEIN TOTAL,TP 7.6 g/dL (6.4-8.2)
[2024-06-14] MEDS: Iopamidol 755 MG/ML 500 ML Multipack Bottle IVPUSH STA (19:43)
[2024-06-14] MEDS: Azithromycin 500 MG in Sodium Chloride 0.9% 250 ML IV STA (21:14)
[2024-06-15] MEDS: Acetaminophen 325 MG Tab PO PRN (01:04)
[2024-06-15] MEDS: Albuterol/Ipratropium 3.0-0.5 MG/3 ML Neb Soln NEB PRN (06:02)
[2024-06-15 06:12] LABS: BASOPHILS ABSOLUTE AUTO 0.01 K/uL (0.00-0.20); BASOPHILS PERCENT AUTO 0.1 % (0.0-1.0); HEMATOCRIT 41.4 % (37.0-47.0); HEMOGLOBIN 14.1 g/dL (12.0-16.0); IMMATURE GRAN ABSOLUTE AUTO 0.04 K/uL (0.00-0.05); IMMATURE GRAN PERCENT AUTO 0.5 % (0.0-0.4); LYMPHOCYTES ABSOLUTE AUTO 0.86 K/uL (1.00-4.80); LYMPHOCYTES PERCENT AUTO 9.7 % (24.0-44.0); MEAN CORPUSCULAR HEMOGLOBIN 27.3 pg (28.0-32.0); MEAN CORPUSCULAR HGB CONC 34.1 g/dL (32.0-36.0); MEAN CORPUSCULAR VOLUME 80.2 fL (83.0-99.0); MEAN PLATELET VOLUME 9.2 fL (9.4-12.3); MONOCYTES ABSOLUTE AUTO 0.17 K/uL (0.00-0.80); MONOCYTES PERCENT AUTO 1.9 % (0.0-8.0); NEUTROPHILS PERCENT AUTO 87.8 % (41.0-71.0); PLATELET COUNT,PLT 164 K/uL (150-400); RED BLOOD CELL COUNT 5.16 M/uL (4.10-5.30); WHITE BLOOD CELL COUNT,WBC 8.88 K/uL (3.9-11.3)
[2024-06-15 06:33] LABS: CALCIUM 8.9 mg/dL (8.5-10.1); CARBON DIOXIDE,CO2 25.6 mmol/L (21.0-32.0); CREATININE 0.8 mg/dL (0.6-1.0); EST CRCL DRUG DOSING (CG) 82.04 mL/min; POTASSIUM,K 3.9 mmol/L (3.5-5.1)
[2024-06-15] MEDS: Enoxaparin 40 MG/0.4 ML Syringe SUBCUT SCH (16:59)
[2024-06-15] MEDS: cefTRIAXone 2 GM in Sodium Chloride 0.9% 50 ML IV SCH (17:00)
[2024-06-15] MEDS: Azithromycin 500 MG in Sodium Chloride 0.9% 250 ML IV SCH (21:56)
[2024-06-16 06:22] LABS: BASOPHILS ABSOLUTE AUTO 0.04 K/uL (0.00-0.20); BASOPHILS PERCENT AUTO 0.5 % (0.0-1.0); EOSINOPHILS ABSOLUTE AUTO 0.15 K/uL (0.00-0.45); EOSINOPHILS PERCENT AUTO 1.8 % (0.0-6.0); HEMATOCRIT 38.1 % (37.0-47.0); HEMOGLOBIN 13.1 g/dL (12.0-16.0); IMMATURE GRAN ABSOLUTE AUTO 0.04 K/uL (0.00-0.05); IMMATURE GRAN PERCENT AUTO 0.5 % (0.0-0.4); LYMPHOCYTES ABSOLUTE AUTO 2.02 K/uL (1.00-4.80); LYMPHOCYTES PERCENT AUTO 24.1 % (24.0-44.0); MEAN CORPUSCULAR HEMOGLOBIN 27.9 pg (28.0-32.0); MEAN CORPUSCULAR HGB CONC 34.4 g/dL (32.0-36.0); MEAN CORPUSCULAR VOLUME 81.2 fL (83.0-99.0); MONOCYTES ABSOLUTE AUTO 0.42 K/uL (0.00-0.80); NEUTROPHILS PERCENT AUTO 68.1 % (41.0-71.0); PLATELET COUNT,PLT 166 K/uL (150-400); RED BLOOD CELL COUNT 4.69 M/uL (4.10-5.30); WHITE BLOOD CELL COUNT,WBC 8.37 K/uL (3.9-11.3)
[2024-06-16 06:51] LABS: A/G RATIO 0.9 (0.9-1.6); ALBUMIN 3.4 g/dL (3.4-5.0); BILIRUBIN TOTAL 0.5 mg/dL (0.2-1.0); CALCIUM 8.7 mg/dL (8.5-10.1); CARBON DIOXIDE,CO2 26.7 mmol/L (21.0-32.0); CREATININE 0.8 mg/dL (0.6-1.0); EST CRCL DRUG DOSING (CG) 82.04 mL/min; MAGNESIUM 1.8 mg/dL (1.8-2.4); POTASSIUM,K 3.7 mmol/L (3.5-5.1)
== END 2024-06-16 12:50 | disposition home or self-care (01) | DRG 194 ==
LOC: MW.ED 16:59 → MW.MS 20:49 → OBSVTOIN 06-15 12:39
PROVIDERS: ADMIT Internal Medicine; ATTEND Internal Medicine
DX: J18.9 Pneumonia, unspecified organism (principal); Z68.43 Body mass index [BMI] 50.0-59.9, adult; E66.9 Obesity, unspecified; M19.90 Unspecified osteoarthritis, unspecified site; F41.9 Anxiety disorder, unspecified; F32.A Depression, unspecified; J45.909 Unspecified asthma, uncomplicated; Z88.5 Allergy status to narcotic agent; Z97.3 Presence of spectacles and contact lenses; Z90.49 Acquired absence of other specified parts of digestive tract; Z98.51 Tubal ligation status; Z98.890 Other specified postprocedural states; Z79.899 Other long term (current) drug therapy; Z87.891 Personal history of nicotine dependence
CPT/HCPCS: 0240U; 36415; 71275; 71275-26; 80048; 80053; 83605; 83735; 83880; 84484; 85025; 85610; 87040; 93005; 94640; 94667; 96361; 96365; 96366; 96367; 96375; 99285-25; A9270-GY; G0378; J0456; J0696; J1650; J1885; J2919; J3490; J7040; J7050; J7620-GY; Q9967